=== PATIENT | female | born 1955 | race African-American/Black ===

== ENCOUNTER 2016-07-26 09:48 | Emergency (ER) | payer OTHER | END 2016-07-26 10:48 | disposition home or self-care (01) | LOC: D.ER 09:48 | DX: S91.202A Unspecified open wound of left great toe with damage to nail, initial encounter (principal); X58.XXXA Exposure to other specified factors, initial encounter; Y93.89 Activity, other specified; Y92.89 Other specified places as the place of occurrence of the external cause; E11.9 Type 2 diabetes mellitus without complications; I10 Essential (primary) hypertension ==